=== PATIENT | female | born 1945 | race Caucasian/White ===

== ENCOUNTER 2017-01-16 05:31 | Emergency (ER) | payer OTHER ==
[~2017-01-16] VITALS: Ht 165.1 cm; Wt 66.9 kg
[~2017-01-16 05:31] MED LIST: ATOR-22 PO; CHOL1000 PO; CIPR-255 PO; HYDR-5688 PO; LISI-461 PO; MULT-506 PO; PANT40TA PO; ZNT/300 PO
[2017-01-16 05:36] VITALS: TEMP 36.7; Ht 165.1 cm; Wt 66.9 kg
[2017-01-16] MEDS ORDERED: OFLOXACIN 0.3% OP SOLN 5 ML BTL OTR STA (06:09)
--- NOTE | 2017-01-16 06:11 | EMERGENCY ROOM VISIT NOTE ---
History Report prepared by Alannaibe: Jesika Bee Under the Supervision of: Dr. Molly Mariano M.D. First contact with patient: 05:46 Chief Complaint: EAR PAIN Stated Complaint: EAR PAIN History of Present Illness The patient is a 71 year old female who presents to the Emergency Room with complaints of persistent right ear pain over the past 10 hours. She has been unable to sleep secondary to her pain. She also complains of some drainage from her right ear and nausea. The patient has a history of perforated ear drums, with episodes occurring 16 years ago and 3 months ago. During each perforation she also had cold-like symptoms. Denies fever or other complaints. the patient was initially seen at [facility] last night and was put on a Z-Pack. Source of History: patient Onset: 8 hours ago Position: ear (right) Timing: other (persistent) Associated Symptoms: + nausea Note: Other symptoms: right ear drainage Review of Systems See HPI for pertinent positives & negatives. A total of 10 systems reviewed and were otherwise negative. Past Medical & Surgical Medical Problems: (1) Incisional hernia (2) Large bowel perforation Family History Colon cancer BROTHER Colonic polyps Diabetes mellitus MOTHER Lymphoma MOTHER Prostate cancer FATHER Social History Smoking Status: Never Smoker Drug Use: none Marital Status: Housing Status: lives alone Occupation Status: retired Current/Historical Medications Scheduled Atorvastatin (Lipitor), 20 MG PO QAM Cefdinir (Omnicef), 300 MG PO Q12H Cholecalciferol (Vitamin D3), 1 TAB PO QAM Lisinopril (Zestril), 10 MG PO QAM Multivitamin (Multivitamin), 1 TAB PO QAM Pantoprazole (Protonix), 40 MG PO QAM Ranitidine HCl (Ranitidine HCl), 1 TAB PO HS Allergies Coded Allergies: BEE STING (Verified Allergy, Severe, SEVERE THROAT SWELLING, 01/16/17) Penicillins (Verified Allergy, Severe, Rash, Throat Swelling, 01/16/17) Sulfa Antibiotics (Verified Allergy, Severe, RASH,HIVES,SOB, 01/16/17) Esomeprazole (Verified Allergy, Intermediate, HIVES, 01/16/17) Aspirin (Verified Allergy, Mild, AVOID DUE TO HX ULCERS, 01/16/17) Doxepin (Verified Allergy, Unknown, SWELLING, 01/16/17) Metronidazole (Verified Allergy, Unknown, ITCHING ON HEAD ?DUE TO FLAGYL, 01/16/17) Mushroom (Verified Allergy, Unknown, SWELLING WITH INGESTION, 01/16/17) Pravastatin (Verified Allergy, Unknown, UNKNOWN, 01/16/17) Physical Exam Vital Signs Date Time Temp Pulse Resp B/P Pulse Ox O2 Delivery O2 Flow Rate FiO2 01/16/17 07:01 98 18 174/126 95 01/16/17 05:36 36.7 115 20 197/102 96 Room Air Physical Exam Vital signs reviewed. General: Well-appearing 71 year old female, in no significant distress. HEENT: No scleral icterus, PERRLA, purulence in the right ear canal, right TM not visualized, neck supple. Atraumatic. Cardiovascular: Regular rate and rhythm, no extra sounds. Pulmonary: Clear to auscultation bilaterally, normal work of breathing. Abdomen: Soft, nontender, nondistended, positive bowel sounds. Musculoskeletal: Atraumatic, no peripheral edema. Neurologic: Patient awake alert and oriented x 3, full strength in all 4 extremities. Cranial nerves 2 through 12 grossly intact. Skin: Warm, dry, no rash Medical Decision & Procedures Medications Administered Medications (Trade) Dose Ordered Sig/Latosha Route Start Time Stop Time Status Last Admin Dose Admin Ceftriaxone Sodium (Rocephin Im) 1,000 mg NOW ONCE IM 01/16/17 06:15 01/16/17 06:16 DC 01/16/17 06:27 1,000 MG Ofloxacin (Ocuflox 0.3% Oph Soln) 4 drops NOW STAT OTR 01/16/17 06:09 01/16/17 06:13 DC 01/16/17 06:28 4 DROPS Ondansetron HCl (Zofran Odt) 4 mg ONE STAT PO 01/16/17 06:19 01/16/17 06:20 DC 01/16/17 06:27 4 MG Epinephrine (Epipen) 0.3 mg NOW STAT IM 01/16/17 06:54 01/16/17 06:55 DC 01/16/17 06:54 0.3 MG ED Course 0556: The patient was evaluated in room B2. A complete history and physical examination was performed. 0609: Ordered Ofloxacin 4 drops OTR. 0615: Ordered Rocephin Inj 1000 mg IM. 0619: Ordered Zofran Odt 4 mg PO. 0650: Upon reevaluation, the patient was resting comfortably. I discussed findings with her. She verbalized agreement of the treatment plan. The patient was discharged home. 0654: Ordered Epipen 0.3 mg IM. Medical Decision Differential includes otitis media, otitis externa, ruptured TM, malignancy. This patient was evaluated and appeared to be in no significant distress. Physical examination reveals a right ear canal that is full of liquid purulent material. TM is not visualized however this is likely ruptured. Patient was placed on Omnicef after she tolerated an IM injection of Rocephin without difficulty. She was observed and developed no allergic symptoms. The patient was given instructions to begin Benadryl if allergic symptoms develop. She will use the EpiPen for severe allergic reaction and stop the medication immediately. Patient was given Floxin drops for the ear to be used twice daily. She'll follow-up with her primary care physician this week and will likely need ENT follow-up. The patient will return to the ER for worsening of symptoms or any medical concerns. Impression Primary Impression: Acute otitis media of right ear with perforated tympanic membrane Scribe Attestation The scribe's documentation has been prepared under my direction and personally reviewed by me in its entirety. I confirm that the note above accurately reflects all work, treatment, procedures, and medical decision making performed by me. Departure Information Dispostion Home / Self-Care Prescriptions Cefdinir (Omnicef) 300 Mg Cap 300 MG PO Q12H for 10 Days, #20 CAP Prov: Molly Mariano M.D. 01/16/17 Referrals Aury Gibson M.D. (PCP) Patient Instructions My [facility] Additional Instructions Diagnosis: Perforated right otitis media Omnicef 300 mg twice daily for 10 days. Ofloxacin 5 drops to the right ear 3 times daily for 7 days. If signs of allergic reaction develop such as hives, itching, lip swelling or throat tightening, take Benadryl 50 mg. Use your EpiPen if symptoms become severe. Follow-up with your primary care physician and ear nose and throat physician within the next several days. Return to the emergency department for worsening of symptoms or any medical concerns.
[2017-01-16] MEDS ORDERED: CEFTRIAXONE SOD 350MG/ML 1 GM VIAL IM ONE (06:15)
[2017-01-16] MEDS ORDERED: ONDANSETRON 4MG OD TAB PO STA (06:19)
[2017-01-16] MEDS ORDERED: CEFD1CAP14 PO (06:53)
[2017-01-16] MEDS ORDERED: EPINEPHRINE ADULT AUTO-INJECT 0.3 MG SYR IM STA (06:54)
[2017-01-16 07:01] VITALS: BP 174/126; PULSE 98; O2SAT 95
[2017-02-24] MEDS ORDERED: LISI20TA3 PO (09:59)
== END 2017-01-16 07:02 | disposition home or self-care (01) ==
LOC: C.EDB 05:32
DX: H66.91 Otitis media, unspecified, right ear (principal); H72.91 Unspecified perforation of tympanic membrane, right ear; Z79.899 Other long term (current) drug therapy; Z88.0 Allergy status to penicillin; Z88.2 Allergy status to sulfonamides; Z88.6 Allergy status to analgesic agent; Z88.8 Allergy status to other drugs, medicaments and biological substances; Z91.018 Allergy to other foods; Z91.030 Bee allergy status; Z83.3 Family history of diabetes mellitus; Z83.71 Family history of colonic polyps; Z80.42 Family history of malignant neoplasm of prostate

== ENCOUNTER → 2017-03-09 | Day surgery (SDC) | payer OTHER ==
[2017-02-24 09:51] VITALS: BMI 24.0
[~2017-03-09] VITALS: Ht 167.6 cm; Wt 68.2 kg
[~2017-03-09] MED LIST changes: -CIPR-255 PO; +CLIN300C2 PO; +ENDOSCOPIC MARKER 5 ML SYR ONE; -HYDR-5688 PO; +LIDOCAINE HCL 2% 2 ML VIAL (20MG/ML) ONE; -LISI-461 PO; +LISI20TA3 PO; +MIDAZOLAM HCL 1 MG/ML 2ML VIAL ONE; +ONDANSETRON INJ 2 MG/ML 2 ML VIAL ONE; +PROPOFOL IV EMULSION 10 MG/ML 20 ML VIAL IV ONE; +SODIUM CHLORIDE 0.9% 500ML 500 ML IV ONE
[2017-03-09 09:30] VITALS: Ht 167.6 cm; Wt 68.2 kg
--- NOTE | 2017-03-09 10:03 | Endo History and Physical ---
History & Physical Date of Service: Mar 09, 2017. Chief Complaint: HX OF POLYPS Referring Physician: DR NIEVES History of Present Illness 71 yo CF who presents for colonoscopy secondary to history of colon polyps. Past Medical History Arthritis, Reflux, High Cholesterol Past Surgical History Hx Cardiac Surgery: No Hx Internal Defibrillator: No Hx Pacemaker: No Hx Abdominal Surgery: Yes (CHAR BSO, CHAZ, ABDOMINAL HERNIA, COLON RESECTION ( POST PERFORATION BOWEL)) Hx of Implantable Prosthesis: No Hx Post-Op Nausea and Vomiting: Yes Hx Cancer Surgery: No Hx Thoracic Surgery: No Hx Orthopedic: Yes (LEFT ERICKSON, LUMBAR FUSION) Hx Urinary Tract Surgery: No Family History Colon CA Social History Smoking Status: Never Smoker Hx Substance Use: No Hx Alcohol Use: No Allergies Coded Allergies: BEE STING (Verified Allergy, Severe, SEVERE THROAT SWELLING, 02/24/17) Penicillins (Verified Allergy, Severe, Rash, Throat Swelling, 02/24/17) Sulfa Antibiotics (Verified Allergy, Severe, RASH,HIVES,SOB, 02/24/17) Esomeprazole (Verified Allergy, Intermediate, HIVES, 02/24/17) Aspirin (Verified Allergy, Mild, AVOID DUE TO HX ULCERS, 02/24/17) Doxepin (Verified Allergy, Unknown, SWELLING, 02/24/17) Metronidazole (Verified Allergy, Unknown, ITCHING ON HEAD ?DUE TO FLAGYL, 02/24/17) Mushroom (Verified Allergy, Unknown, SWELLING WITH INGESTION, 02/24/17) Pravastatin (Verified Allergy, Unknown, SWELLING, 02/24/17) Current Medications Reported Home Medications Medications Dose Route/Sig Max Daily Dose Days Date Category Prinivil (Lisinopril) 20 Mg Tab 20 Mg PO QAM 02/24/17 Reported Vitamin D3 (Cholecalciferol) 1,000 Unit Tab 1 Tab PO QAM 90 10/14/16 Reported Multivitamin (Multivitamins) Tab 1 Tab PO QAM 06/30/14 Reported Ranitidine HCl 300 Mg Tab 1 Tab PO HS 06/30/14 Reported Protonix (Pantoprazole Sodium) 40 Mg Tab 40 Mg PO QAM 06/30/14 Reported Lipitor (Atorvastatin Calcium) 20 Mg Tab 20 Mg PO QAM 06/30/14 Reported Vital Signs Weight (Kilograms): 68.18 Height (Feet): 5 Height (Inches): 6 Date Time Temp Pulse Resp B/P Pulse Ox O2 Delivery O2 Flow Rate FiO2 03/09/17 09:35 36.8 83 18 176/94 97 Room Air Physical Exam General Appearance: WD/WN, no apparent distress Respiratory/Chest: Auscultation: breath sounds normal Cardiovascular: Heart Auscultation: RRR Abdomen: Bowel Sounds: normal Inspection & Palpation: soft, non-distended, no tenderness, guarding & rebound Assessment and Plan Assessment: 71 yo CF who presents for colonoscopy secondary to history of colon polyps. Plan: Proceed with colonoscopy.
--- NOTE | 2017-03-09 10:37 | GI REPORT ---
Procedure Date: 03/09/2017 10:07 AM THIS REPORT HAS BEEN AMENDED Addendum Number: 1 Addendum Date: 03/09/2017 11:15:14 AM Biopsies were performed of the transverse colon polyp. Procedure: Colonoscopy Indications: High risk colon cancer surveillance: Personal history of colonic polyps Medicines: Monitored Anesthesia Care Complications: No immediate complications. Estimated Blood Loss: Estimated blood loss: none. Procedure: Pre-Anesthesia Assessment: - Prior to the procedure, a History and Physical was performed, and patient medications and allergies were reviewed. The patient's tolerance of previous anesthesia was also reviewed. The risks and benefits of the procedure and the sedation options and risks were discussed with the patient. All questions were answered, and informed consent was obtained. Prior Anticoagulants: The patient has taken no previous anticoagulant or antiplatelet agents. ASA Grade Assessment: II - A patient with mild systemic disease. After reviewing the risks and benefits, the patient was deemed in satisfactory condition to undergo the procedure. After I obtained informed consent, the scope was passed under direct vision. Throughout the procedure, the patient's blood pressure, pulse, and oxygen saturations were monitored continuously. The scope was introduced through the anus and advanced to the ileocolonic anastomosis. The colonoscopy was performed without difficulty. The patient tolerated the procedure well. The quality of the bowel preparation was good. The rectum was photographed. Findings: A 25 mm polyp was found in the transverse colon. The polyp was flat. Area was tattooed with an injection of 4 mL of Alondra ink 3 cm proximal to the polyp, site to avoid future difficulty with lifting of polyp and to provide landmark. Multiple small-mouthed diverticula were found in the sigmoid colon. Non-bleeding internal hemorrhoids were found during retroflexion. The hemorrhoids were small. Impression: - One 25 mm polyp in the transverse colon. Tattooed. - Diverticulosis in the sigmoid colon. - Non-bleeding internal hemorrhoids. - No specimens collected. Recommendation: - Resume previous diet. - Continue present medications. - Await pathology results. - Repeat colonoscopy to review the polypectomy site. - Return to endoscopist at appointment to be scheduled. Blayne Hebert DO 03/09/2017 10:37:27 AM This report has been signed electronically. Note Initiated On: 03/09/2017 10:07 AM I attest to the content of the Intraoperative Record and orders documented therein, exceptions below Blayne Hebert DO 03/09/2017 11:15:37 AM This report has been signed electronically.
--- NOTE | 2017-03-09 11:08 | Discharge Instructions ---
Endoscopy Patient Instructions Date / Procedure(s) Performed Mar 09, 2017. Colonoscopy Allergy Information Coded Allergies: BEE STING (Verified Allergy, Severe, SEVERE THROAT SWELLING, 02/24/17) Penicillins (Verified Allergy, Severe, Rash, Throat Swelling, 02/24/17) Sulfa Antibiotics (Verified Allergy, Severe, RASH,HIVES,SOB, 02/24/17) Esomeprazole (Verified Allergy, Intermediate, HIVES, 02/24/17) Aspirin (Verified Allergy, Mild, AVOID DUE TO HX ULCERS, 02/24/17) Doxepin (Verified Allergy, Unknown, SWELLING, 02/24/17) Metronidazole (Verified Allergy, Unknown, ITCHING ON HEAD ?DUE TO FLAGYL, 02/24/17) Mushroom (Verified Allergy, Unknown, SWELLING WITH INGESTION, 02/24/17) Pravastatin (Verified Allergy, Unknown, SWELLING, 02/24/17) Discharge Date / Findings Mar 09, 2017. Colon polyp s/p biopsies Diverticulosis Internal hemorrhoids Medication Instructions OK to resume all medications today as prescribed Reported Home Medications Medications Dose Route/Sig Max Daily Dose Days Date Category Prinivil (Lisinopril) 20 Mg Tab 20 Mg PO QAM 02/24/17 Reported Vitamin D3 (Cholecalciferol) 1,000 Unit Tab 1 Tab PO QAM 90 10/14/16 Reported Multivitamin (Multivitamins) Tab 1 Tab PO QAM 06/30/14 Reported Ranitidine HCl 300 Mg Tab 1 Tab PO HS 06/30/14 Reported Protonix (Pantoprazole Sodium) 40 Mg Tab 40 Mg PO QAM 06/30/14 Reported Lipitor (Atorvastatin Calcium) 20 Mg Tab 20 Mg PO QAM 06/30/14 Reported Provider Instructions Activity Restrictions - No exercising or heavy lifting for 24 hours. - Do not drink alcohol the day of the procedure. - Do not drive a car or operate machinery until the day after the procedure. - Do not make any important decisions or sign important papers in 24 hours after the procedure. Following Day: - Return to full activity which may include returning to work/school. Diet Start your diet with liquids and light foods (jello, soup, juice, toast). Then eat your usual diet if not nauseated. Treatment For Common After Affects For mild abdominal pain, bloating, or excessive gas: - Rest - Eat lightly - Lie on right side Follow-Up Information Follow-up with DR NIEVES as scheduled Anesthesia Information What You Should Know You have had a procedure that required some medicine to reduce anxiety and discomfort. This treatment is called moderate sedation. After receiving the treatment, you may be sleepy, but you will be able to breathe on your own. The effects of the treatment may last for several hours. Follow these instructions along with Activity/Diet recommendations noted above: * Do NOT do anything where dizziness or clumsiness would be dangerous. * Rest quietly at home today, then you can be up and about tomorrow. * Have a responsible person stay with you the rest of today. * You may have had an I.V. today. If so, you may take the dressing off later today. Recommendations Call your doctor if: * Trouble breathing * Continuous vomiting for more than 24 hours * Temperature above 101 degrees * Severe abdominal pain or bloating * Pain not relieved by pain medicine ordered * There is increased drainage or redness from any incision * A large amount of rectal bleeding greater than 2-3 tablespoons. (If you had a polyp/s removed or have hemorrhoids, a small amount of blood - from the rectum is to be expected.) * You have any unanswered questions or concerns. IN THE EVENT OF A SERIOUS EMERGENCY, GO TO THE NEAREST EMERGENCY ROOM Your discharge instructions were prepared by provider Blayne Hebert. Patient Instructions Signature Page Libra Clarke Patient (or Guardian) Signature/Date: I have read and understand the instructions given to me by my caregivers. Caregiver/RN/Doctor Signature/Date: The above-named patient and/or guardian has received patient instructions on this date. + Original Patient Signature Page (only) stays with chart. Please make copy for patient.
[2017-03-09 11:10] VITALS: BP 147/82; PULSE 80; O2SAT 98
--- NOTE | 2017-03-09 13:32 | Anesthesiology Progress Note ---
Anesthesia Post Op Note Date & Time Mar 09, 2017 at 13:31 Vital Signs Pain Intensity: 0 Vital Signs Past 12 Hours Date Time Temp Pulse Resp B/P Pulse Ox O2 Delivery O2 Flow Rate FiO2 03/09/17 11:10 80 20 147/82 98 Room Air 03/09/17 10:52 81 20 121/67 98 Room Air 03/09/17 10:37 82 20 129/75 98 Room Air 03/09/17 09:35 36.8 83 18 176/94 97 Room Air Notes Mental Status: alert / awake / arousable, participated in evaluation Pt Amnestic to Procedure: Yes Nausea / Vomiting: adequately controlled Pain: adequately controlled Airway Patency, RR, SpO2: stable & adequate BP & HR: stable & adequate Hydration State: stable & adequate Anesthetic Complications: no major complications apparent
== END | disposition home or self-care (01) ==
LOC: C.GI 08:53
PROVIDERS: ATTEND Internal Medicine
DX: Z12.11 Encounter for screening for malignant neoplasm of colon (principal); Z86.010 Personal history of colon polyps; D12.3 Benign neoplasm of transverse colon; K57.30 Diverticulosis of large intestine without perforation or abscess without bleeding; I10 Essential (primary) hypertension; M19.90 Unspecified osteoarthritis, unspecified site; Z88.0 Allergy status to penicillin; Z90.89 Acquired absence of other organs; Z90.49 Acquired absence of other specified parts of digestive tract; Z96.642 Presence of left artificial hip joint; Z68.24 Body mass index [BMI] 24.0-24.9, adult; Z88.2 Allergy status to sulfonamides; Z91.018 Allergy to other foods; Z80.0 Family history of malignant neoplasm of digestive organs

== ENCOUNTER → 2017-08-25 | Outpatient (CLI) | payer OTHER ==
[~2017-08-25] MED LIST changes: -CLIN300C2 PO; -ENDOSCOPIC MARKER 5 ML SYR ONE; -LIDOCAINE HCL 2% 2 ML VIAL (20MG/ML) ONE; -MIDAZOLAM HCL 1 MG/ML 2ML VIAL ONE; -ONDANSETRON INJ 2 MG/ML 2 ML VIAL ONE; -PROPOFOL IV EMULSION 10 MG/ML 20 ML VIAL IV ONE; -SODIUM CHLORIDE 0.9% 500ML 500 ML IV ONE
[2017-08-25 12:48] LABS: ALT/SGPT 24 U/L (12-78); BLOOD UREA NITROGEN 16 mg/dl (7-18); BUN/CREATININE RATIO 18.9 (10-20); CALCIUM 9.5 mg/dl (8.5-10.1); CARBON DIOXIDE 27 mmol/L (21-32); CHLORIDE 104 mmol/L (98-107); CHOLESTEROL 194 mg/dl (0-200); CREATININE 0.83 mg/dl (0.60-1.20); GLUCOSE 97 mg/dl (70-99); SODIUM 139 mmol/L (136-145)
[2017-08-25 12:51] LABS: ALB/GLOB RATIO 1.1 (0.9-2); ALKALINE PHOSPHATASE 107 U/L (45-117); AST/SGOT 19 U/L (15-37); CHOLESTEROL/HDL RATIO 3.2; HDL CHOLESTEROL 60 mg/dl; LDL CHOLESTEROL CALCULATED 78 mg/dl; TRIGLYCERIDES 279 mg/dl (0-150); VERY LOW DENSITY LIPOPROT CALC 56 mg/dl
[2017-08-25 12:54] LABS: ESTIMATED AVERAGE GLUCOSE 134 mg/dl; HA1C FLAG Normal (Normal)
== END | disposition home or self-care (01) ==
LOC: C.LABBFT 09:11
PROVIDERS: ATTEND Internal Medicine
DX: Z00.00 Encounter for general adult medical examination without abnormal findings (principal); I10 Essential (primary) hypertension; R73.01 Impaired fasting glucose

== ENCOUNTER 2017-09-23 20:24 | Emergency (ER) | payer OTHER ==
[~2017-09-23] VITALS: Ht 165.1 cm; Wt 68.0 kg
[2017-09-23 20:27] VITALS: TEMP 36.8; Ht 165.1 cm; Wt 68.0 kg
[2017-09-23] MEDS ORDERED: LIDOCAINE/EPINEPHRINE 1% 20 ML VIAL INFIL ONE (21:00)
--- NOTE | 2017-09-23 21:12 | EMERGENCY ROOM VISIT NOTE ---
ED Visit Note First contact with patient: 20:32 Staff note: I have reviewed the Patients chart and have discussed this case with my PA. I generally agree with the ED note and findings.
[2017-09-23] MEDS ORDERED: CLIN300C2 PO (21:59)
[2017-09-23] MEDS ORDERED: CLINDAMYCIN HCL 150 MG CAP PO ONE (22:00)
[2017-09-23 22:02] VITALS: BP 205/106; PULSE 99; O2SAT 97
--- NOTE | 2017-09-23 22:02 | EMERGENCY ROOM VISIT NOTE ---
History First contact with patient: 20:32 Chief Complaint: WOUND INFECTION Stated Complaint: ABSCESS BY GROIN, POSSIBLE SPIDER BITE Nursing Triage Summary: Pt reports "spider bite" to right inner thigh/groin area and to right posterior arm. Groin lesion started 3 days ago and is [id number] with white head. draining yellow fluid. Arm lesion noticed yesterday. Small red area without drainage. History of Present Illness The patient is a 71 year old female who presents to the Emergency Room with complaints of a possible spider bite. The patient states that she has an area of swelling in her right groin as well as a small area of swelling on the back of her right arm. She states she first noticed the area on the groin 3 days ago. She has been using warm Epsom salt soaks without relief. She states the area is not painful. She believes she may have been bitten by a spider, but denies any history of an obvious spider bite. She denies any fevers/chills. She has full range of motion of the legs. The patient is not diabetic. Review of Systems A complete 10 point review of systems was reviewed with the patient with pertinent positives and negatives as per history of present illness. All else were negative. Past Medical/Surgical History Medical Problems: (1) Incisional hernia (2) Large bowel perforation Family History Colon cancer BROTHER Colonic polyps Diabetes mellitus MOTHER Lymphoma MOTHER Prostate cancer FATHER Social History Smoking Status: Never Smoker Drug Use: none Marital Status: Housing Status: lives alone Occupation Status: retired Current/Historical Medications Scheduled Atorvastatin (Lipitor), 20 MG PO QAM Clindamycin Hcl (Cleocin), 300 MG PO TID Lisinopril (Prinivil), 20 MG PO QAM Multivitamin (Multivitamin), 1 TAB PO QAM Pantoprazole (Protonix), 40 MG PO QAM Ranitidine HCl (Ranitidine HCl), 1 TAB PO HS Physical Exam Vital Signs Date Time Temp Pulse Resp B/P (MAP) Pulse Ox O2 Delivery O2 Flow Rate FiO2 09/23/17 22:02 99 15 205/106 97 Room Air 09/23/17 20:27 36.8 117 18 198/110 95 Room Air Physical Exam VITALS: Vitals are noted on the nurse's note and reviewed by myself. Vital signs stable. GENERAL: This is a 71-year-old female, in no acute distress, nondiaphoretic, well-developed well-nourished. SKIN: There is an area of fluctuance which measures 2 cm x 2 cm at the proximal right inner thigh. There is a small amount of purulent drainage. There is a very small area of erythema and swelling to the posterior right upper arm with no fluctuance or drainage. HEART: Regular rate and rhythm without murmurs gallops or rubs. LUNGS: Clear to auscultation bilaterally without wheezes, rales or rhonchi. MUSCULOSKELETAL: Full range of motion throughout. NEURO: Patient was alert and oriented to person place and time. Medical Decision & Procedures Medications Administered Medications (Trade) Dose Ordered Sig/Latosha Route Start Time Stop Time Status Last Admin Dose Admin Clindamycin HCl (Cleocin Cap) 300 mg ONE ONCE PO 09/23/17 22:00 09/23/17 22:01 DC 09/23/17 22:01 300 MG Procedure Verbal consent was obtained to perform the procedure. After saline and Betadine cleansing and 3 mL of 1% buffered lidocaine anesthesia, the abscess was incised with a number 11 scalpel blade. No significant purulent material was expressed. A swab was obtained for culture. The area was cleaned with sterile saline and dressed with bacitracin and a bulky bandage. The patient tolerated the procedure well. Medical Decision Differential diagnosis includes insect bite, cellulitis, abscess, among others. The patient was evaluated as above. I&D was attempted, but no significant pus was expelled. This does seem to represent an abscess/phlegmon and the patient will be placed on clindamycin pending the culture results. She was instructed to follow-up with her primary care provider within the next 2-3 days for recheck and return here if symptoms worsen in the meantime. She verbalized understanding of my assessment and treatment plan and was discharged home in good condition. The patient was independently evaluated by Dr. Rodriguez, ED attending physician, who agreed with my assessment and treatment plan. Medication Reconcilliation Current Medication List: was personally reviewed by me Blood Pressure Screening Patient's blood pressure: Elevated blood pressure Blood pressure disposition: Referred to PCP (patient reports she has white coat syndrome and blood pressure is typically very elevated when seen at a hospital or doctors office.) Impression Primary Impression: Abscess of right thigh Departure Information Dispostion Home / Self-Care Condition GOOD Prescriptions Clindamycin Hcl (CLEOCIN) 300 Mg Cap 300 MG PO TID for 7 Days, #21 CAP Prov: Homa Sargent .ELEUTERIO 09/23/17 Referrals Aury Gibson M.D. (PCP) Patient Instructions My [facility] Additional Instructions You were seen in the Emergency Department for an infection of your leg. You were prescribed clindamycin to be taken 3 times daily as prescribed. This is an antibiotic. All antibiotics have the potential to cause diarrhea. Stop this medication and contact a medical provider if you were to develop any significant adverse side effects including: wheezing, shortness of breath, passing out, vomiting, or a diffuse rash. Always take antibiotics as directed and COMPLETE the ENTIRE course regardless of the improvement of your symptoms. You should take a probiotic while taking these antibiotics. Proper wound care is essential for adequate wound healing and infection prevention. You can use an antibiotic ointment with a dressing over the wound for the next 3-4 days. After this time you may leave the wound dry and open to the air. Look for signs of infection of the wound including: increased pain, swelling, foul discharge, streaking, or increased temperature. If any of these are noticed you should return to the Emergency Department for further assessment and treatment. As with any laceration you may have received nerve damage to the surrounding tissues. This damage may or may not be permanent. For pain control, you can use the following [id number] medicines (if >12 yo): - Regular strength (325mg/tab) Tylenol (acetaminophen) 2 tabs every 4-6 hours as needed. Do not exceed 12 tablets in a 24 hour period. Avoid taking more than 4 grams (4000 mg) of Tylenol per day. This includes any other sources of acetaminophen you may take on a regular basis. - Regular strength (200 mg/tab) Advil (ibuprofen) 1-2 tabs every 4-6 hours as needed. Do not exceed a dose of 3200 mg per day. You should call your primary care provider tomorrow to schedule a follow-up appointment Thursday afternoon for a recheck. Return to the emergency department if your symptoms worsen despite treatment course outlined above.
--- NOTE | 2017-09-25 16:06 | Pharmacy Progress Note ---
ED Pharmacist Culture FollowUp Date of Service: Sep 25, 2017. Patient was sent home with a prescription for clindamycin, which should cover the MSSA growing from the patient's wound culture.
== END 2017-09-23 22:05 | disposition home or self-care (01) ==
LOC: C.EDB 20:25 → C.EDD 22:05
DX: L02.415 Cutaneous abscess of right lower limb (principal); L98.9 Disorder of the skin and subcutaneous tissue, unspecified; Z80.0 Family history of malignant neoplasm of digestive organs; Z80.7 Family history of other malignant neoplasms of lymphoid, hematopoietic and related tissues; Z79.899 Other long term (current) drug therapy

== ENCOUNTER → 2017-11-26 | Outpatient (CLI) | payer OTHER ==
[~2017-11-26] MED LIST changes: -CHOL1000 PO
--- NOTE | 2017-11-26 17:00 | DIAGNOSTIC IMAGING REPORT ---
CHEST 2 VIEWS ROUTINE CLINICAL HISTORY: 72 years-old Female presenting with CHILLS,COUGH,FATIGUE. TECHNIQUE: PA and lateral views of the chest were obtained. COMPARISON: 03/09/2016. FINDINGS: Atherosclerosis of the aortic arch. Cardiac silhouette normal in size. Lungs and pleural spaces clear. Osseous structures normal. Upper abdomen normal. IMPRESSION: 1. No acute cardiopulmonary disease. Electronically signed by: Gatito Davenport M.D. 11/26/2017 4:58 PM Dictated Date/Time: 11/26/2017 4:58 PM
== END | disposition home or self-care (01) ==
LOC: C.RAD1850 16:41
PROVIDERS: ATTEND Internal Medicine
DX: R68.83 Chills (without fever) (principal); R05 Cough; R53.83 Other fatigue

== ENCOUNTER → 2018-02-09 | Day surgery (SDC) | payer OTHER ==
[2018-01-22 13:04] VITALS: Ht 168.9 cm; Wt 68.2 kg
[~2018-02-09] VITALS: Ht 168.9 cm; Wt 68.2 kg
[~2018-02-09] MED LIST changes: +500ML BSS 0.3ML EPI 1:1000PF IRRIG ONE; +ACETAMINOPHEN 325 MG TAB PO PRN; +AMVISC PLUS 0.8ML SYRINGE INT OCU ONE; +ASCA500 PO; +ATROPINE SULFATE 0.1 MG/ML 5ML SYR IV PRN; +BSS FLUSH ONE; +CHOL1000 PO; +EpHEDrine SULFATE INJ 50 MG/ML AMP IV PRN; +EpINEphrine INJ 1MG/ML AMP 1 MG/ML AMP ONE; +LABETALOL HCL IV 5 MG/ML 20ML IV ONE; +LACTATED RINGER'S 1000ML 500 ML IV SCH; +LIDOCAINE 3.5% OPH GEL PER APPLICATION CHARGE ONE; +LIDOCAINE HCL 1% MPF 2 ML VIAL ONE; +MIDAZOLAM HCL 1 MG/ML 2ML VIAL ONE; +POVIDONE-IODINE OP SOLN 30 ML BTL ONE; +PROPARACAINE 0.5% OP SOLN PER DROP CHARGE OPR SCH; +SODIUM CHLORIDE 0.9% 500ML IV SCH; +TOBRAMYCIN/DEXAMETHASONE OPH OINT PER APPLN CHARGE ONE
[2018-02-09] MEDS: PHENYLEPHRINE HCL 2.5% OP SOLN PER DROP CHARGE OPR SCH ×2 (10:48→10:53)
[2018-02-09] MEDS: TROPICAMIDE 1% OP SOLN PER DROP CHARGE OPR SCH ×2 (10:49→10:54)
[2018-02-09] MEDS: CYCLOPENTOLATE HCL 1% OP SOLN PER DROP CHARGE OPR SCH ×2 (10:50→10:55)
[2018-02-09] MEDS: KETOROLAC 0.5% OP SOLN PER DROP CHARGE OPR SCH ×2 (10:51→10:56)
[2018-02-09] MEDS: GATIFLOXACIN OP SOLN PER DROP CHARGE OPR SCH ×2 (10:52→11:02)
--- NOTE | 2018-02-09 11:13 | History & Physical Bridge - [place] ---
H&P Re-Evaluation Bridge Note: I have examined the patient, reviewed the History & Physical and in the interval since the performance of the History & Physical I have noted the following changes of clinical significance: No changes noted
--- NOTE | 2018-02-09 11:44 | [facility] Operative Report ---
Operative Report Date of Service Feb 09, 2018. Operative Report 1. PREOPERATIVE DIAGNOSIS: Cataract of the right eye. 2. POSTOPERATIVE DIAGNOSIS: Same. 3. PROCEDURE: Phacoemulsification with intraocular lens implantation of the right eye. SURGEON: Dr. Mariano Bell. ANESTHESIA: Topical Lidocaine gel, 1% Non- Preserved intracameral Lidocaine, and monitored intravenous sedation. INDICATIONS FOR THE PROCEDURE: The patient is a 72 - year-old female with a history of cataract of the right eye causing significant visual impairment. The details of the proposed procedure were explained to the patient who asked appropriate questions and following discussion of all risks, benefits and alternatives agreed to have the procedure done. 4. OPERATION AND FINDINGS: DESCRIPTION OF PROCEDURE: After informed consent was obtained, the patient was brought to the Operating Room at the [facility]. The patient was placed in a supine position and then the right eye was prepped and draped in the usual sterile fashion for intraocular surgery. A drop of topical Lidocaine gel was placed in the operative eye. A wire lid speculum was then placed in the fornices. A corneal paracentesis was then created temporally. The Non-Preserved Lidocaine was then instilled into the anterior chamber. The anterior chamber was then pressurized with viscoelastic. A 2.0 mm clear corneal incision was then created temporally. A cystotome was inserted into the anterior chamber and used to create a tear in the anterior lens capsule. This capsular tear was then used to create a small flap and the flap was dragged in a counterclockwise direction in order to create a continuous curvilinear capsulorrhexis. Hydrodissection was accomplished with balanced salt solution. Phacoemulsification of the lens nucleus was then performed in a standard [id number] technique. The phaco time was 19 seconds with an average power of 13 %. The remaining cortical material was removed using irrigation aspiration. The capsular bag was then filled with viscoelastic. A Bausch [employer] Lomb MI60L +20.0 diopters lens was then loaded into the injector and injected into the capsular bag. The remaining viscoelastic was removed with the irrigation aspiration handpiece. The wound was hydrated and then checked and found to be watertight. The intraocular pressure was checked and found to be adequate. The wire lid speculum was removed and the patient's face was cleaned and dried. TobraDex ointment was placed in the inferior fornix. The patient was discharged to the Recovery Room having tolerated the procedure well. There were no complications. The patient will be seen tomorrow in the office for follow-up. I attest to the content of the Intraoperative Record and any orders documented therein. Any exceptions are noted below.
--- NOTE | 2018-02-09 11:45 | Discharge Instructions-SurgCtr ---
Discharge Instructions Date of Service Feb 09, 2018. Visit Reason for Visit: Cataract Right Eye Discharge Discharge Diagnosis / Problem: cataract Discharge Goals Goal(s): Improve function Activity Recommendations Activity Limitations: per Instructions/Follow-up section Anesthesia . Post Anesthesia Instructions: If you have had General Anesthesia or IV Sedation: * Do not drive today. * Resume driving when surgeon permits. * Do not make important decisions or sign legal documents today. * Call surgeon for: 1. Temperature elevations greater than 101 degrees F. 2. Uncontrollable pain. 3. Excessive bleeding. 4. Persistent nausea and vomiting. 5. Medication intolerance (nausea, vomiting or rash). * For nausea and vomiting use only clear liquids such as: tea, soda, bouillon until nausea subsides, then gradually increase diet as tolerated. * If you have any concerns or questions, call your surgeon's office. If physician is unavailable and it is an emergency, call 911 or go to the nearest emergency room. . Diet Recommendations Home Diet: resume previous diet Procedures Procedures Performed: Right Cataract Phacoemulsification With Intraocular Lens Implant Pending Studies Studies pending at discharge: no Medical Emergencies . Who to Call and When: Medical Emergencies: If at any time you feel your situation is an emergency, please call 911 immediately. . Non-Emergent Contact Non-Emergency issues call your: S[employer] Architect . . "Provider Documentation" section prepared by Mariano Bell. .
[2018-02-09 11:48] VITALS: TEMP 36.2
--- NOTE | 2018-02-09 12:05 | Anesthesia Progress Nt - [facility] ---
Anesthesia Post Op Note Date & Time Feb 09, 2018 at 12:05 Vital Signs Pain Intensity: 0 Vital Signs Past 12 Hours Date Time Temp Pulse Resp B/P (MAP) Pulse Ox O2 Delivery O2 Flow Rate FiO2 02/09/18 11:48 36.2 88 14 150/87 (108) 98 Room Air 02/09/18 10:40 36.8 84 22 177/105 (129) 95 Room Air 171/99 (123) Notes Mental Status: alert / awake / arousable, participated in evaluation Pt Amnestic to Procedure: Yes Nausea / Vomiting: adequately controlled Pain: adequately controlled Airway Patency, RR, SpO2: stable & adequate BP & HR: stable & adequate Hydration State: stable & adequate Anesthetic Complications: no major complications apparent
[2018-02-09 12:10] VITALS: BP 132/83; PULSE 79; O2SAT 97
== END | disposition home or self-care (01) ==
LOC: X.SURG 10:17
PROVIDERS: ATTEND Ophthalmology
DX: H26.9 Unspecified cataract (principal); I10 Essential (primary) hypertension; Z79.899 Other long term (current) drug therapy; Z90.710 Acquired absence of both cervix and uterus; Z90.49 Acquired absence of other specified parts of digestive tract; Z87.19 Personal history of other diseases of the digestive system; Z96.642 Presence of left artificial hip joint; Z88.0 Allergy status to penicillin; Z88.2 Allergy status to sulfonamides; Z88.6 Allergy status to analgesic agent; Z98.890 Other specified postprocedural states; Z80.7 Family history of other malignant neoplasms of lymphoid, hematopoietic and related tissues; Z80.42 Family history of malignant neoplasm of prostate; Z80.0 Family history of malignant neoplasm of digestive organs; Z83.71 Family history of colonic polyps

== ENCOUNTER → 2018-03-02 | Day surgery (SDC) | payer OTHER ==
[2018-02-16 14:54] VITALS: Ht 168.9 cm; Wt 68.2 kg
[~2018-03-02] VITALS: Ht 168.9 cm; Wt 68.2 kg
[~2018-03-02] MED LIST changes: +FENTANYL CITRATE INJ 50 MCG/1 ML 2 ML VIAL IV PRN; +FLUMAZENIL 0.1 MG/1 ML 10 ML VIAL IV PRN; +HYDROmorphone INJ 2 MG/ML SYR/VIAL IV PRN; -LABETALOL HCL IV 5 MG/ML 20ML IV ONE; +LABETALOL HCL IV 5 MG/ML 20ML IV PRN; +MEPERIDINE HCL 25 MG/ML CARP IV PRN; +NALOXONE HCL 0.4 MG/1 ML VIAL/CARP IV PRN; +OCUCOAT 1 ML SOLN IO ONE; +ONDANSETRON INJ 2 MG/ML 2 ML VIAL IV PRN; +PHENYLEPHRINE 100MCG/ML 5ML SYR IV PRN; +PROPARACAINE 0.5% OP SOLN PER DROP CHARGE OPL SCH; -PROPARACAINE 0.5% OP SOLN PER DROP CHARGE OPR SCH; -SODIUM CHLORIDE 0.9% 500ML IV SCH
--- NOTE | 2018-03-02 11:41 | History & Physical Bridge - [place] ---
H&P Re-Evaluation Bridge Note: I have examined the patient, reviewed the History & Physical and in the interval since the performance of the History & Physical I have noted the following changes of clinical significance: Diagnosis: Left Cataract Procedure: Left Cataract Removal with Lens Implant No changes noted
[2018-03-02] MEDS: PHENYLEPHRINE HCL 2.5% OP SOLN PER DROP CHARGE OPL SCH ×2 (11:45→11:50)
[2018-03-02] MEDS: TROPICAMIDE 1% OP SOLN PER DROP CHARGE OPL SCH ×2 (11:46→11:51)
[2018-03-02] MEDS: CYCLOPENTOLATE HCL 1% OP SOLN PER DROP CHARGE OPL SCH ×2 (11:47→11:52)
[2018-03-02] MEDS: KETOROLAC 0.5% OP SOLN PER DROP CHARGE OPL SCH ×2 (11:48→11:53)
[2018-03-02] MEDS: GATIFLOXACIN OP SOLN PER DROP CHARGE OPL SCH ×2 (11:49→11:59)
--- NOTE | 2018-03-02 12:53 | Discharge Instructions-SurgCtr ---
Discharge Instructions Date of Service Mar 02, 2018. Visit Reason for Visit: Cataract Left Eye Discharge Discharge Diagnosis / Problem: cataract Discharge Goals Goal(s): Improve function Activity Recommendations Activity Limitations: per Instructions/Follow-up section Anesthesia . Post Anesthesia Instructions: If you have had General Anesthesia or IV Sedation: * Do not drive today. * Resume driving when surgeon permits. * Do not make important decisions or sign legal documents today. * Call surgeon for: 1. Temperature elevations greater than 101 degrees F. 2. Uncontrollable pain. 3. Excessive bleeding. 4. Persistent nausea and vomiting. 5. Medication intolerance (nausea, vomiting or rash). * For nausea and vomiting use only clear liquids such as: tea, soda, bouillon until nausea subsides, then gradually increase diet as tolerated. * If you have any concerns or questions, call your surgeon's office. If physician is unavailable and it is an emergency, call 911 or go to the nearest emergency room. . Diet Recommendations Home Diet: resume previous diet Procedures Procedures Performed: Left Cataract Phacoemulsification With Intraocular Lens Implant Pending Studies Studies pending at discharge: no Medical Emergencies . Who to Call and When: Medical Emergencies: If at any time you feel your situation is an emergency, please call 911 immediately. . Non-Emergent Contact Non-Emergency issues call your: Electric Lift Truck Driver . . "Provider Documentation" section prepared by Mariano Bell. .
--- NOTE | 2018-03-02 12:53 | [facility] Operative Report ---
Operative Report Date of Service Mar 02, 2018. Operative Report 1. PREOPERATIVE DIAGNOSIS: Cataract of the left eye. 2. POSTOPERATIVE DIAGNOSIS: Same. 3. PROCEDURE: Phacoemulsification with intraocular lens implantation of the left eye. SURGEON: Dr. Mariano Bell. ANESTHESIA: Topical Lidocaine gel, 1% Non- Preserved intracameral Lidocaine, and monitored intravenous sedation. INDICATIONS FOR THE PROCEDURE: The patient is a 72 - year-old female with a history of cataract of the left eye causing significant visual impairment. The details of the proposed procedure were explained to the patient who asked appropriate questions and following discussion of all risks, benefits and alternatives agreed to have the procedure done. 4. OPERATION AND FINDINGS: DESCRIPTION OF PROCEDURE: After informed consent was obtained, the patient was brought to the Operating Room at the [facility]. The patient was placed in a supine position and then the left eye was prepped and draped in the usual sterile fashion for intraocular surgery. A drop of topical Lidocaine gel was placed in the operative eye. A wire lid speculum was then placed in the fornices. A corneal paracentesis was then created temporally. The Non-Preserved Lidocaine was then instilled into the anterior chamber. The anterior chamber was then pressurized with viscoelastic. A 2.0 mm clear corneal incision was then created temporally. A cystotome was inserted into the anterior chamber and used to create a tear in the anterior lens capsule. This capsular tear was then used to create a small flap and the flap was dragged in a counterclockwise direction in order to create a continuous curvilinear capsulorrhexis. Hydrodissection was accomplished with balanced salt solution. Phacoemulsification of the lens nucleus was then performed in a standard [id number] technique. The phaco time was 21 seconds with an average power of 11 %. The remaining cortical material was removed using irrigation aspiration. The capsular bag was then filled with viscoelastic. A Bausch & Lomb MI60L +20.5 diopters lens was then loaded into the injector and injected into the capsular bag. The remaining viscoelastic was removed with the irrigation aspiration handpiece. The wound was hydrated and then checked and found to be watertight. The intraocular pressure was checked and found to be adequate. The wire lid speculum was removed and the patient's face was cleaned and dried. TobraDex ointment was placed in the inferior fornix. The patient was discharged to the Recovery Room having tolerated the procedure well. There were no complications. The patient will be seen tomorrow in the office for follow-up. I attest to the content of the Intraoperative Record and any orders documented therein. Any exceptions are noted below.
[2018-03-02 12:55] VITALS: TEMP 36.6
--- NOTE | 2018-03-02 13:08 | Anesthesia Progress Nt - [facility] ---
Anesthesia Post Op Note Date & Time Mar 02, 2018 at 13:08 Vital Signs Pain Intensity: 0 Vital Signs Past 12 Hours Date Time Temp Pulse Resp B/P (MAP) Pulse Ox O2 Delivery O2 Flow Rate FiO2 03/02/18 12:55 36.6 74 16 131/81 (98) 99 Room Air 03/02/18 11:37 36.6 80 16 174/99 (124) 96 Room Air Notes Mental Status: alert / awake / arousable, participated in evaluation Pt Amnestic to Procedure: Yes Nausea / Vomiting: adequately controlled Pain: adequately controlled Airway Patency, RR, SpO2: stable & adequate BP & HR: stable & adequate Hydration State: stable & adequate Anesthetic Complications: no major complications apparent
[2018-03-02 13:17] VITALS: BP 122/80; PULSE 73; O2SAT 100
== END | disposition home or self-care (01) ==
LOC: X.SURG 10:40
PROVIDERS: ATTEND Ophthalmology
DX: H26.9 Unspecified cataract (principal); I10 Essential (primary) hypertension; E78.5 Hyperlipidemia, unspecified; Z88.0 Allergy status to penicillin; Z88.2 Allergy status to sulfonamides; Z88.1 Allergy status to other antibiotic agents; Z88.6 Allergy status to analgesic agent; Z90.49 Acquired absence of other specified parts of digestive tract; Z98.890 Other specified postprocedural states; Z91.030 Bee allergy status; Z96.642 Presence of left artificial hip joint; Z90.89 Acquired absence of other organs; Z90.710 Acquired absence of both cervix and uterus; Z79.82 Long term (current) use of aspirin; Z80.7 Family history of other malignant neoplasms of lymphoid, hematopoietic and related tissues; Z80.42 Family history of malignant neoplasm of prostate; Z80.0 Family history of malignant neoplasm of digestive organs

== ENCOUNTER → 2018-04-15 | Outpatient (CLI) | payer OTHER ==
[~2018-04-15] MED LIST changes: -500ML BSS 0.3ML EPI 1:1000PF IRRIG ONE; -ACETAMINOPHEN 325 MG TAB PO PRN; -AMVISC PLUS 0.8ML SYRINGE INT OCU ONE; -ATROPINE SULFATE 0.1 MG/ML 5ML SYR IV PRN; -BSS FLUSH ONE; -EpHEDrine SULFATE INJ 50 MG/ML AMP IV PRN; -EpINEphrine INJ 1MG/ML AMP 1 MG/ML AMP ONE; -FENTANYL CITRATE INJ 50 MCG/1 ML 2 ML VIAL IV PRN; -FLUMAZENIL 0.1 MG/1 ML 10 ML VIAL IV PRN; -HYDROmorphone INJ 2 MG/ML SYR/VIAL IV PRN; -LABETALOL HCL IV 5 MG/ML 20ML IV PRN; -LACTATED RINGER'S 1000ML 500 ML IV SCH; -LIDOCAINE 3.5% OPH GEL PER APPLICATION CHARGE ONE; -LIDOCAINE HCL 1% MPF 2 ML VIAL ONE; -MEPERIDINE HCL 25 MG/ML CARP IV PRN; -MIDAZOLAM HCL 1 MG/ML 2ML VIAL ONE; -NALOXONE HCL 0.4 MG/1 ML VIAL/CARP IV PRN; -OCUCOAT 1 ML SOLN IO ONE; -ONDANSETRON INJ 2 MG/ML 2 ML VIAL IV PRN; -PHENYLEPHRINE 100MCG/ML 5ML SYR IV PRN; -POVIDONE-IODINE OP SOLN 30 ML BTL ONE; -PROPARACAINE 0.5% OP SOLN PER DROP CHARGE OPL SCH; -TOBRAMYCIN/DEXAMETHASONE OPH OINT PER APPLN CHARGE ONE
--- NOTE | 2018-04-15 13:40 | DIAGNOSTIC IMAGING REPORT ---
BILATERAL CAROTID DOPPLER STUDY HISTORY: R09.89 Carotid bruit [id number] COMPARISON: None. TECHNIQUE: Real-time, grayscale, and color Doppler sonography of the carotid arteries was performed. Imaging reviewed in the transverse and longitudinal planes. All measurements were calculated based on NASCET criteria. FINDINGS: Antegrade flow is seen in the bilateral vertebral arteries. The brachial pressures are hemodynamically similar. Mild calcified plaque within the bilateral carotid bifurcations and is elevated measuring up to 171/93. The peak systolic velocity within the right ICA is 68 cm/s. The right systolic ratio is 0.7. The peak systolic velocity within the left ICA is 94 cm/s. The left systolic ratio is 1.0. IMPRESSION: No hemodynamically significant stenosis seen within the carotid arteries. Hypertension measuring up to 171/93. Electronically signed by: Adal Slaughter M.D. 04/15/2018 1:39 PM Dictated Date/Time: 04/15/2018 1:38 PM
== END | disposition home or self-care (01) ==
LOC: C.ULTR 12:56
PROVIDERS: ATTEND Internal Medicine
DX: R09.89 Other specified symptoms and signs involving the circulatory and respiratory systems (principal); I10 Essential (primary) hypertension

== ENCOUNTER 2022-08-28 08:23 | Inpatient (IN) ==
--- NOTE | 2022-08-18 16:06 | Anesthesiology Consultation ---
Date of Service August 18, 2022 Assessment & Plan (1) Encounter for pre-operative examination: COVID screening: Per assessment on 08/18: No known COVID-19 positive contacts or current COVID-19 related symptoms. Travel screen negative. Patient vaccinated. At surgeon discretion if preop Covid testing being done. Chart Review Chart Review: Acceptable Risk for Surgery and Patient NOT seen in Pre Admission Testing History Surgery Operation Date: 08/28/22 10:25 Proposed Procedures p L3-L4 Decompression and Fusion, L4-L5 [place]ward Removal, Spinal Cord Monitoring - [place], Height/Weight Height: 5 ft 5.5 in Weight: 58.967 kg Allergies Allergy/AdvReac Type Severity Reaction Status Date / Time bee venom protein (honey bee) Allergy Severe SEVERE Verified 08/18/22 15:08 THROAT SWELLING Penicillins Allergy Severe Rash, Verified 08/18/22 15:08 Throat Swelling Sulfa (Sulfonamide Allergy Severe RASH,HIVES, Verified 08/18/22 15:08 Antibiotics) SOB doxepin Allergy Intermediate SWELLING Verified 08/18/22 15:08 esomeprazole Allergy Intermediate HIVES Verified 08/18/22 15:08 mushroom Allergy Intermediate SWELLING Verified 08/18/22 15:08 WITH INGESTION pravastatin Allergy Intermediate SWELLING Verified 08/18/22 15:08 adhesive Allergy Mild RASH Verified 08/18/22 15:08 aspirin Allergy Mild AVOID DUE Verified 08/18/22 15:08 TO HX ULCERS metronidazole Allergy Mild ITCHING ON Verified 08/18/22 15:08 HEAD ?DUE TO FLAGYL Medications Home Medications Medication Instructions Recorded Confirmed Last Taken ascorbic acid (vitamin C) 500 mg 500 mg PO QAM 10/03/18 08/18/22 01/07/22 tablet cholecalciferol (vitamin D3) 25 1,000 unit PO QAM 10/03/18 08/18/22 01/07/22 mcg (1,000 unit) tablet (Vitamin D3) furosemide 20 mg tablet (Lasix) 20 mg PO DAILY PRN edema #30 tabs 10/29/21 08/18/22 01/07/22 alendronate 70 mg tablet (Fosamax) 70 mg PO WEEKLY #12 tabs 12/30/21 08/18/22 01/06/22 atorvastatin 20 mg tablet 20 mg PO QAM 01/02/22 08/18/22 01/08/22 06:00 pantoprazole 40 mg tablet,delayed 40 mg PO QAM 01/02/22 08/18/22 01/07/22 06:00 release amlodipine 5 mg tablet 5 mg PO QAM #90 tabs 02/18/22 08/18/22 Unknown lisinopril 20 mg tablet 20 mg PO QAM #90 tabs 02/18/22 08/18/22 Unknown meloxicam 7.5 mg tablet 7.5 mg PO DAILY PRN pain #90 tabs 02/18/22 08/18/22 Unknown meclizine 25 mg tablet 25 mg PO Q8H PRN motion sickness 03/24/22 08/18/22 Unknown #30 tabs tramadol 50 mg tablet (Ultram) 50 mg PO Q6H PRN pain #30 tabs 08/07/22 08/18/22 Unknown famotidine 20 mg tablet 20 mg PO QAM 08/18/22 08/18/22 Unknown Past Medical History Medical History (Updated 08/18/22 @ 16:05 by Yany Giordano) GERD (gastroesophageal reflux disease) 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 History of basal cell carcinoma eyelid HTN (hypertension) Hx of gastric ulcer Hx of migraines Hx of renal calculi Hyperlipidemia Lumbar stenosis with neurogenic claudication Osteoporosis Fosamax started 01/2020 Temporomandibular joint disorder NO LOCKING>HAS NOT HAD ISSUES FOR A WHILE Tinnitus of right ear Past Family History Family History Brother Stroke Family history of reaction to anesthesia long time to wake up Father Cancer Mother Cancer Other No significant family history Denies family history of Hearing loss No family history of adverse response to anesthesia Heart disease Allergies Hypertension Asthma Past Surgical History Surgical History (Updated 08/18/22 @ 15:16 by Radha Huynh RN) H/O local excision of skin lesion NOSE AREA "PRE-CANCEROUS SKIN" H/O right hemicolectomy D/T BOWEL PERFORATION History of bilateral cataract extraction History of colonoscopy History of esophagogastroduodenoscopy (EGD) History of incisional hernia repair History of lumbar spinal fusion History of Mohs micrographic surgery for skin cancer basal cell on eyelid/FOREHEAD History of tonsillectomy History of tooth extraction History of total abdominal hysterectomy and bilateral salpingo-oophorectomy History of wisdom tooth extraction Nausea and vomiting after administration of anesthetic agent S/P cholecystectomy S/P hip replacement left Social History Smoking Status: Never smoker Hx Alcohol Use: No substance use type: does not use Lab Results Anesthesia Preop Results Results Anesthesia Widget: WBC 7.86 K/ul (4.8-10.8) 08/18/22 Hgb 12.0 g/dl (12.0-16.0) 08/18/22 Hct 37.6 % (34.1-44.9) 08/18/22 Plt 389 K/uL (130-400) 08/18/22 Na 140 mmol/L (136-145) 08/18/22 K 4.0 mmol/L (3.5-5.1) 08/18/22 Cl 104 mmol/L (98-107) 08/18/22 CO2 28 mmol/L (21-32) 08/18/22 BUN 23 mg/dl (6-23) 08/18/22 Creat 0.69 mg/dl (0.6-1.2) 08/18/22 Glucose Level 78 mg/dl (70-99(Fasting)) 08/18/22 PT 10.4 Seconds (9.0-12.0) 08/18/22 PTT 26.5 Seconds (21.0-31.0) 08/18/22 INR 1.0 (0.9-1.1) 08/18/22 Urine Color Yellow 08/18/22 Urine Appearance Clear (Clear) 08/18/22 Urine pH 6.5 (4.5-7.5) 08/18/22 Urine Specific [place] 1.020 (1.000-1.030) 08/18/22 Urine Protein Negative (Negative) 08/18/22 Urine Glucose (UA) Negative (Negative) 08/18/22 Urine Ketones Negative (Negative) 08/18/22 Urine Blood Negative (Negative) 08/18/22 Urine Nitrite Negative (Negative) 08/18/22 Urine Bilirubin Negative (Negative) 08/18/22 Urine Urobilinogen Negative (Negative) 08/18/22 Urine Leukocyte Esterase Negative (Negative) 08/18/22 Blood Type O Positive 08/18/22 Antibody Screen NEGATIVE 08/18/22 Testing Electrocardiogram Date: 08/18/22 Findings: + NSR @ (81) Chest X-Ray Date: 08/18/22 Findings: + NAD
[~2022-08-28 08:23] MED LIST changes: +ACETAMINOPHEN 500 MG TAB PO SCH; -ASCA500 PO; -ATOR-22 PO; -CHOL1000 PO; +CLINDAMYCIN/D5W 600 MG/50 ML BAG **Premixed Bag IV SCH; +GABAPENTIN 300 MG CAP PO SCH; -LISI20TA3 PO; +LR 15ML/HR IV SCH; -MULT-506 PO; -PANT40TA PO; -ZNT/300 PO
[2022-08-28] MEDS ORDERED: fentaNYL citrate 100 MCG/2 ML VIAL ONE (10:21)
[2022-08-28] MEDS ORDERED: MIDAZOLAM HCL 1 MG/ML 2ML VIAL ONE (10:21)
[2022-08-28] MEDS ORDERED: HYDROmorphone INJ 2 MG/ML SYR/VIAL ONE (10:22)
[2022-08-28] MEDS ORDERED: SCOPOLAMINE 1 MG TDSY TD ONE ×2 (10:40→10:42)
[2022-08-28] MEDS ORDERED: FAMOTIDINE/PF 20 MG/2 ML VIAL IV ONE (10:46)
[2022-08-28] MEDS: APREPITANT 40 MG CAP PO STA (10:53)
--- NOTE | 2022-08-28 10:57 | History & Physical Bridge Note ---
Date of Service August 28, 2022 History & Physical Bridge Note I have examined the patient, reviewed the History & Physical and in the interval since the performance of the History & Physical I have noted the following changes of clinical significance: no changes noted
--- NOTE | 2022-08-28 10:58 | History & Physical Report ---
Date of Service August 28, 2022 Assessment & Plan (1) Lumbar stenosis with neurogenic claudication: Plan: L3-L4 decompression fusion, L4-L5 hardware removal History of Present Illness Chief Complaint: Back and leg pain Primary Care Provider: Aury Gibson MD This is a 76-year-old female presents with current persistent back and leg pain. After failing since course of nonoperative care she is here for surgical invention. Allergies Allergy/AdvReac Type Severity Reaction Status Date / Time bee venom protein (honey bee) Allergy Severe SEVERE Verified 08/28/22 08:45 THROAT SWELLING Penicillins Allergy Severe Rash, Verified 08/28/22 08:45 Throat Swelling Sulfa (Sulfonamide Allergy Severe RASH,HIVES, Verified 08/28/22 08:45 Antibiotics) SOB doxepin Allergy Intermediate SWELLING Verified 08/28/22 08:45 esomeprazole Allergy Intermediate HIVES Verified 08/28/22 08:45 mushroom Allergy Intermediate SWELLING Verified 08/28/22 08:45 WITH INGESTION pravastatin Allergy Intermediate SWELLING Verified 08/28/22 08:45 adhesive Allergy Mild RASH Verified 08/28/22 08:45 aspirin Allergy Mild AVOID DUE Verified 08/28/22 08:45 TO HX ULCERS metronidazole Allergy Mild ITCHING ON Verified 08/28/22 08:45 HEAD ?DUE TO FLAGYL Home Medications Medication Instructions Recorded Confirmed Type ascorbic acid (vitamin C) 500 mg 500 mg PO QAM 10/03/18 08/28/22 History tablet cholecalciferol (vitamin D3) 25 1,000 unit PO QAM 10/03/18 08/28/22 History mcg (1,000 unit) tablet (Vitamin D3) furosemide 20 mg tablet (Lasix) 20 mg PO DAILY PRN edema #30 tabs 10/29/21 08/28/22 Rx alendronate 70 mg tablet (Fosamax) 70 mg PO WEEKLY #12 tabs 12/30/21 08/28/22 Rx atorvastatin 20 mg tablet 20 mg PO QAM 01/02/22 08/28/22 History pantoprazole 40 mg tablet,delayed 40 mg PO QAM 01/02/22 08/28/22 History release amlodipine 5 mg tablet 5 mg PO QAM #90 tabs 02/18/22 08/28/22 Rx lisinopril 20 mg tablet 20 mg PO QAM #90 tabs 02/18/22 08/28/22 Rx meloxicam 7.5 mg tablet 7.5 mg PO DAILY PRN pain #90 tabs 02/18/22 08/28/22 Rx meclizine 25 mg tablet 25 mg PO Q8H PRN motion sickness 03/24/22 08/28/22 Rx #30 tabs famotidine 20 mg tablet 20 mg PO QAM 08/18/22 08/28/22 History tramadol 50 mg tablet (Ultram) 50 mg PO Q6H PRN pain #30 tabs 08/25/22 08/28/22 Rx Past Med/Surg History Medical History GERD (gastroesophageal reflux disease) 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 History of basal cell carcinoma eyelid HTN (hypertension) Hx of gastric ulcer Hx of migraines Hx of renal calculi Hyperlipidemia Lumbar stenosis with neurogenic claudication Osteoporosis Fosamax started 01/2020 Temporomandibular joint disorder NO LOCKING>HAS NOT HAD ISSUES FOR A WHILE Tinnitus of right ear Surgical History H/O local excision of skin lesion H/O right hemicolectomy History of bilateral cataract extraction History of colonoscopy History of esophagogastroduodenoscopy (EGD) History of incisional hernia repair History of lumbar spinal fusion History of Mohs micrographic surgery for skin cancer History of tonsillectomy History of tooth extraction History of total abdominal hysterectomy and bilateral salpingo-oophorectomy History of wisdom tooth extraction Nausea and vomiting after administration of anesthetic agent S/P cholecystectomy S/P hip replacement Family History Brother Stroke Family history of reaction to anesthesia Father Cancer Mother Cancer Other No significant family history Denies family history of Hearing loss No family history of adverse response to anesthesia Heart disease Allergies Hypertension Asthma Social History Smoking Status: Former smoker Tobacco Type: Cigarettes packs per day: 0.5; Years Smoked: 2; Second Hand Exposure: No; Hx Alcohol Use: No Hx Substance Use: No Preferred Language: Gambian Communication Ability: Effective Shoemaking Cutter Required: No Beliefs That Will Affect Care: None marital status: Current Living Situation: Alone current occupational status: retired How many Children do You have Comment: Adopted son currently lives with her, he has Curry's disease and 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 Feels Safe at Home: Yes Safety Concerns: Feels Safe At This Time Childhood Exposure to Second-Hand Smoke: No caffeine: Yes (Hot tea ) Dental Care, Regularly: Yes Physical Activity Frequency: Does not Exercise Physical Activity Frequency Comment: Is active throughout the day Seatbelt Use: always Sunscreen Use: Yes Assistive Devices: Glasses Assistive Devices Comment: PARTIAL PLATE Physical Exam Physical Exam: Patient is alert and oriented Heart regular rhythm Lungs clear Results & Data Results & Data ([facility]) Vital Signs (Past 12 Hours) Vital Signs Temp Pulse Resp BP Pulse Ox O2 Del Method 08/28/22 08:49 36.8 C 97 H 20 168/108 H 98 Room Air
[2022-08-28] MEDS ORDERED: ceFAZolin 330 MG/ML 1 GM VIAL ONE (11:04)
[2022-08-28] MEDS ORDERED: BUPIVACAINE/EPINEPHRINE 0.25% 1:200,000 30 ML VIAL ONE (11:04)
[2022-08-28] MEDS ORDERED: FLOSEAL HEMOSTATIC MATRIX 10ML TOP ONE (12:00)
[2022-08-28] MEDS ORDERED: ROCURONIUM BROMIDE 10 MG/ML 5 ML VIAL IV ONE (12:27)
[2022-08-28] MEDS ORDERED: PROPOFOL IV EMULSION 10 MG/ML 20 ML VIAL IV ONE (12:27)
[2022-08-28] MEDS ORDERED: PHENYLEPHRINE HCL 10 MG/ML VIAL ONE (12:27)
[2022-08-28] MEDS ORDERED: NEOSTIGMINE METHYLSULFATE 1 MG/ML 10ML VIAL ONE (12:27)
[2022-08-28] MEDS ORDERED: ONDANSETRON INJ 2 MG/ML 2 ML VIAL ONE (12:27)
[2022-08-28] MEDS ORDERED: GLYCOPYRROLATE 0.2 MG/ML VIAL ONE (12:27)
[2022-08-28] MEDS ORDERED: DEXAMETHASONE SOD INJ 4 MG/ML VIAL ONE (12:27)
--- NOTE | 2022-08-28 13:00 | Operative Report ---
Post Operative Report Pre & Post Diagnosis Operation Date: 08/28/22 10:05 Pre-Op Diagnosis: Lumbar stenosis with neurogenic claudication Post-Op Diagnosis: Lumbar stenosis with neurogenic claudication Osteoporosis I identified the patient and participated in the time-out.: Yes Procedure Operation Date: 08/28/22 10:05 Actual Procedures #1 removal of posterior instrumentation L4-5. #2 exploration of fusion L4-5 per #3 lumbar decompression bilateral medial facetectomies and foraminotomies L2-3 L3-L4 per #4 posterior spinal fusion L3-L4. #5 placement posterior instrumentation L3-L4. #6 interbody fusion L3-L4. #7 placement of Spira 12 x 22 mm cage at L3-L4. #8 placement locally harvested morselized autograft in the posterior gutters. #9 placement of I factor, V toss in the interbody space and posterior gutters. Surgeon Ok Alba, Property Administrator Suzanne Busby Estimated Blood Loss 100 Findings Consistent with Post-Op Diagnosis Specimens None Indications This is a 76-year-old female who presents above-mentioned diagnosis after failed extensive course of nonoperative care she is here for surgical invention. Description of Procedure ExpectedPatient is now identified informed consent obtained. Patient was then taken to the operative suite underwent an patient placed in a prone position the Clifton table on top of the Javier frame. All bony prominences well-padded ensure no external pressure placed upon them. This point lumbar spine was prepped and draped in a sterile fashion. Sharp dissection with the assistance of bradycardia was performed down to and exposing the lamina and transverse processes of L3 and instrumentation L4-L5 bilaterally. And then proceeded move the hardware bilaterally at L4-5 explored the fusion mass noting it to be mature and intact. Informed complete laminectomy L3 partial laminectomy of L2 acknowledging evidence of advanced osteoporosis with soft bone. I did perform bilateral medial facetectomies and foraminotomies addressing severe spinal stenosis and neural encroachment. Pedicle screws were then placed at L3-L4 bilaterally with assistance of fluoroscopy and the properly sized silver placed. By way of a transforaminal approach on the left complete discectomy L3-L4 was performed endplates curetted to subcortical bleeding bone and a 12 x 22 mm spiral cage filled with I factor tapped in position. The rods then compressed locked in final position bilaterally. Transverse processes of L3-L4 burred to subcortical bleeding bone. I factor combined with V toss and locally harvested morselized autograft was then placed in the posterior gutters. 15 round MEHRDAD inserted. The incision was then closed with 1 Vicryl in the fascia 2-0 Vicryl subcutaneously and 4 Monocryl for final skin closure. Steri-Strip sterile dressings placed. Patient waken taken back in stable condition. Please note spinal cord monitoring was utilized at the procedure no changes noted. Lastly Suzanne Busby was present out the entire procedure and while the patient positioning complex portion of the surgery and final skin closure. I attest to the content of the Intraoperative Record and any orders documented therein. Any exceptions are noted below.
[2022-08-28] MEDS ORDERED: SUGAMMADEX SODIUM 200 MG/2 ML VIAL IV ONE (13:05)
--- NOTE | 2022-08-28 13:25 | Fluoroscopy Report ---
FL lumbar spine 2-3V CLINICAL HISTORY: L3-L4 DECOMPRESSION AND FUSION L4-L5 HW REMOVAL COMPARISON STUDY: None. FLUOROSCOPY TIME: 10 seconds. FINDINGS: 2 fluoroscopic spot images of the lumbar spine demonstrate posterior decompression and fusi on L3-L4 with pedicle screws and rods. Hardware appears intact. A disc spacer is in place. IMPRESSION: Fluoroscopic assistance provided for L3-L4 posterior decompression and fusion. ACT 112: Negative or not required by law. Electronically signed by: Adal Slaughter M.D. 08/28/2022 1:23 PM
[2022-08-28] MEDS ORDERED: diphenhydrAMINE Capsule 25 MG CAP PO PRN (14:32)
[2022-08-28] MEDS ORDERED: MAGNESIUM HYDROXIDE SUSP 30 ML UDC PO PRN (14:32)
[2022-08-28] MEDS ORDERED: SOD PHOSPHATE/SOD BIPHOSPHATE ENEMA 132 ML BTL PR PRN (14:32)
[2022-08-28] MEDS ORDERED: LORazepam 0.5 MG TAB PO PRN (14:32)
[2022-08-28] MEDS ORDERED: HYDROmorphone INJ 1 MG/ML SYRINGE IV PRN (14:32)
[2022-08-28] MEDS ORDERED: MECLIZINE HCL 25 MG TAB PO PRN (14:32)
[2022-08-28] MEDS ORDERED: ALUMINUM/MAGNESIUM SUSP 30 ML UDC PO PRN (14:32)
[2022-08-28] MEDS ORDERED: oxyCODONE HCL IR 5 MG TAB (IMMEDIATE RELEASE) PO PRN (14:32)
[2022-08-28] MEDS ORDERED: FAMOTIDINE 20 MG TAB PO PRN (14:32)
[2022-08-28] MEDS ORDERED: METOCLOPRAMIDE HCL INJ 5 MG/ML 2 ML VIAL IV PRN (14:32)
[2022-08-28] MEDS ORDERED: ONDANSETRON 4 MG OD TAB PO PRN (14:32)
[2022-08-28] MEDS ORDERED: PROMETHAZINE HCL 12.5 MG in SODIUM CHLORIDE 0.9% 50 ML IV PRN (14:32)
[2022-08-28] MEDS ORDERED: LORazepam 0.5 MG in SYRINGE 0 ML IV PRN (14:32)
[2022-08-28] MEDS ORDERED: FUROSEMIDE 20 MG TAB PO PRN (14:32)
[2022-08-28] MEDS ORDERED: ACETAMINOPHEN 500 MG TAB PO PRN (14:32)
[2022-08-28] MEDS ORDERED: ACETAMINOPHEN 1,000 MG/100 ML VIAL IV PRN (14:32)
[2022-08-28] MEDS ORDERED: hydrOXYzine HCl 25 MG TAB PO PRN (14:32)
[2022-08-28] MEDS ORDERED: HYDROmorphone INJ 0.5 MG/0.5 ML SYR IV PRN (14:32)
[2022-08-28] MEDS ORDERED: ONDANSETRON INJ 2 MG/ML 2 ML VIAL IV PRN (14:32)
[2022-08-28] MEDS ORDERED: bisacodyL 10 MG SUPP PR PRN (14:32)
[2022-08-28] MEDS ORDERED: NALOXONE HCL 0.4 MG/1 ML VIAL/CARP IV PRN (14:32)
[2022-08-28] MEDS: SODIUM CHLORIDE 0.9% 1000ML 1,000 ML IV SCH (14:35)
--- NOTE | 2022-08-28 15:45 | Anesthesiology Progress Note ---
Date of Service August 28, 2022 Anesthesia Post Procedure Vital Signs Vital Signs: Temp Pulse Pulse Resp BP Pulse Ox O2 Del Method 08/28/22 15:08 36.4 C L 44 L 14 119/68 93 Room Air 08/28/22 14:32 36.5 C 78 14 130/76 94 Nasal Cannula 08/28/22 14:15 36.7 C 79 10 L 119/67 98 Room Air 08/28/22 14:05 36.7 C 82 14 122/66 93 Room Air 08/28/22 13:55 36.7 C 88 15 135/77 95 Room Air 08/28/22 13:45 36.7 C 84 11 L 135/77 99 Room Air 08/28/22 13:35 84 12 142/81 H 100 Oxymask 08/28/22 13:25 92 H 15 154/85 H 99 Oxymask 08/28/22 13:18 36.7 C 90 18 149/94 H 99 Oxymask 08/28/22 08:49 36.8 C 97 H 20 168/108 H 98 Room Air O2 Flow Rate 08/28/22 15:08 08/28/22 14:32 2 08/28/22 14:15 08/28/22 14:05 08/28/22 13:55 08/28/22 13:45 08/28/22 13:35 3 08/28/22 13:25 5 08/28/22 13:18 7 08/28/22 08:49 Transfer of Care Handoff Completed per policy Notes Mental Status: alert / awake / arousable and participated in evaluation Patient Amnestic to Procedure: Yes Nausea / Vomiting: adequately controlled Pain: adequately controlled Airway Patency, RR, SpO2: stable & adequate BP & HR: stable & adequate Hydration State: stable & adequate Anesthetic Complications: no major complications apparent and Pt Satisfied with anesthetic care
--- NOTE | 2022-08-28 16:19 | Hospitalist Consultation ---
Date of Consultation August 28, 2022 Assessment & Plan (1) Lumbar stenosis with neurogenic claudication: - PODD #0. EBL 100 cc. Without complications. 1 MEHRDAD drain placed. - Pain/ABX/IVF/diet/drain management/transfusion needs/activity per primary team - Rescue Narcan ordered for over sedation PRN - VTE prophylaxis per primary service- SCDs in place - CBC and BMP in AM. - Baseline renal function: Cr 0.69, GFR 84.6. - Baseline Hgb: 12.0 on 08/18. (2) Hx of gastric ulcer: - Given history of gastric ulcer, will avoid NSAIDs for pain control, as she is scheduled IV steroids once daily, consider increasing PPI to twice daily. - Monitor hemoglobin on morning labs. (3) HTN (hypertension): - Hold lisinopril until POD #2, however can restart pending adequate renal function on POD #1 patient is significantly hypertensive. - Okay to continue amlodipine tomorrow POD #1. (4) Hyperlipidemia: - Continue statin 20 mg daily. (5) Acid reflux: - Continue Pepcid 20 mg with pantoprazole 40 mg in the morning. (6) Lower extremity edema: - Prescribed Lasix 20 mg on an as-needed basis. - Would hold on this until POD #2 unless necessary. (7) Osteoporosis: - Takes Fosamax weekly. Plan - Admitted to [facility] per primary team. - SCDs ordered for VTE PPx per primary team. - Full code. Patient has two COVID tests from this AM, one is positive and the other is negative. Will discuss the need for isolation precuations with infection control. Plan of care discussed with my attending physician, Dr. Isaac. History of Present Illness Reason for Consultation: Postop medical management Requesting Physician: Ok Alba DO Attending Physician: Ok Alba DO History of Present Illness Libra Clarke is a 76-year-old female with a past medical history significant for hypertension, lower extremity edema, hyperlipidemia, GERD, osteoporosis, and lumbar stenosis who was admitted today, 08/28 for a L3-L4 decompression fusion with L4-L5 hardware removal with Dr. Alba. She has had persistent back and leg pain and has failed outpatient, nonoperative care. Hospitalist group was consulted for post-operative medication management. Today, she is POD#0 and feels well. She has some mild pain and nausea post- operatively but appears to be resting comfortably in bed. Conversing easily without SOB. Denies fever/chills, weakness, chest pain, palpitations, shortness of breath, cough, orthopnea, abdominal pain, nausea, vomiting. Allergies Allergy/AdvReac Type Severity Reaction Status Date / Time bee venom protein (honey bee) Allergy Severe SEVERE Verified 08/28/22 08:45 THROAT SWELLING Penicillins Allergy Severe Rash, Verified 08/28/22 08:45 Throat Swelling Sulfa (Sulfonamide Allergy Severe RASH,HIVES, Verified 08/28/22 08:45 Antibiotics) SOB doxepin Allergy Intermediate SWELLING Verified 08/28/22 08:45 esomeprazole Allergy Intermediate HIVES Verified 08/28/22 08:45 mushroom Allergy Intermediate SWELLING Verified 08/28/22 08:45 WITH INGESTION pravastatin Allergy Intermediate SWELLING Verified 08/28/22 08:45 adhesive Allergy Mild RASH Verified 08/28/22 08:45 aspirin Allergy Mild AVOID DUE Verified 08/28/22 08:45 TO HX ULCERS metronidazole Allergy Mild ITCHING ON Verified 08/28/22 08:45 HEAD ?DUE TO FLAGYL Home Medications Medication Instructions Recorded Confirmed Type ascorbic acid (vitamin C) 500 mg 500 mg PO QAM 10/03/18 08/28/22 History tablet cholecalciferol (vitamin D3) 25 1,000 unit PO QAM 10/03/18 08/28/22 History mcg (1,000 unit) tablet (Vitamin D3) furosemide 20 mg tablet (Lasix) 20 mg PO DAILY PRN edema #30 tabs 10/29/21 08/28/22 Rx alendronate 70 mg tablet (Fosamax) 70 mg PO WEEKLY #12 tabs 12/30/21 08/28/22 Rx atorvastatin 20 mg tablet 20 mg PO QAM 01/02/22 08/28/22 History pantoprazole 40 mg tablet,delayed 40 mg PO QAM 01/02/22 08/28/22 History release amlodipine 5 mg tablet 5 mg PO QAM #90 tabs 02/18/22 08/28/22 Rx lisinopril 20 mg tablet 20 mg PO QAM #90 tabs 02/18/22 08/28/22 Rx meloxicam 7.5 mg tablet 7.5 mg PO DAILY PRN pain #90 tabs 02/18/22 08/28/22 Rx meclizine 25 mg tablet 25 mg PO Q8H PRN motion sickness 03/24/22 08/28/22 Rx #30 tabs famotidine 20 mg tablet 20 mg PO QAM 08/18/22 08/28/22 History tramadol 50 mg tablet (Ultram) 50 mg PO Q6H PRN pain #30 tabs 08/25/22 08/28/22 Rx Patient History Medical History (Updated 08/28/22 @ 16:13 by Essie Reece PA-C) GERD (gastroesophageal reflux disease) 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 History of basal cell carcinoma eyelid HTN (hypertension) Hx of gastric ulcer Hx of migraines Hx of renal calculi Hyperlipidemia Lumbar stenosis with neurogenic claudication Osteoporosis Fosamax started 01/2020 Temporomandibular joint disorder NO LOCKING>HAS NOT HAD ISSUES FOR A WHILE Tinnitus of right ear Surgical History H/O local excision of skin lesion NOSE AREA "PRE-CANCEROUS SKIN" H/O right hemicolectomy D/T BOWEL PERFORATION History of bilateral cataract extraction History of colonoscopy History of esophagogastroduodenoscopy (EGD) History of incisional hernia repair History of lumbar spinal fusion History of Mohs micrographic surgery for skin cancer basal cell on eyelid/FOREHEAD History of tonsillectomy History of tooth extraction History of total abdominal hysterectomy and bilateral salpingo-oophorectomy History of wisdom tooth extraction Nausea and vomiting after administration of anesthetic agent S/P cholecystectomy S/P hip replacement left Family History Brother Stroke Family history of reaction to anesthesia long time to wake up Father Cancer Mother Cancer Other No significant family history Denies family history of Hearing loss No family history of adverse response to anesthesia Heart disease Allergies Hypertension Asthma Social History Smoking Status: Former smoker Tobacco Type: Cigarettes packs per day: 0.5; Years Smoked: 2; Second Hand Exposure: No; Hx Alcohol Use: No Hx Substance Use: No Preferred Language: Occitan Communication Ability: Effective 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 Feels Safe at Home: Yes Safety Concerns: Feels Safe At This Time Childhood Exposure to Second-Hand Smoke: No caffeine: Yes (Hot tea ) Dental Care, Regularly: Yes Physical Activity Frequency: Does not Exercise Physical Activity Frequency Comment: Is active throughout the day Seatbelt Use: always Sunscreen Use: Yes Assistive Devices: Cane and Walker Assistive Devices Comment: PARTIAL PLATE Review of Systems Review of Systems: Constitutional: No fever/chills, weakness, fatigue, myalgias, anorexia, night sweats Eyes: No diplopia, no worsening or blurred vision ENT: normal hearing, no trouble swallowing Respiratory: No cough, sputum, dyspnea at rest or on exertion Cardiovascular: No chest pain, tightness or palpitations Abdomen: mild nausea post-anesthesia; No pain, vomiting, diarrhea or constipation : Denies dysuria, hematuria, increased urgency/frequency, urinary retention Musculoskeletal: mild back pain post-op; No other joint pain, calf pain, swelling Neurologic: No weakness, numbness/tingling, or balance problems Psychiatric: No anxiety or depression Skin: No rash or itch Physical Exam Physical Exam: General: awake, alert, no apparent distress Head: Normocephalic, atraumatic ENT: PERRL, EOMI, no pharyngeal exudate, mucous membranes moist Chest: Clear to auscultation, on room air, no adventitious breath sounds Cardiac: Regular rate and rhythm, no murmur, no JVD, normal peripheral pulses, good capillary refill Abdominal: NABS x 4 quadrants, soft, nontender to palpation, no rebound, guarding or tenderness Extremities: Normal inspection, no peripheral edema or erythema, calfs nontender to palpation Psych: Normal mood and affect Neuro: AAO x 3, strength intact bilaterally and rated 5/5, no motor deficits, speech is clear, no peripheral sensory deficits Skin: no rash or erythema Results & Data Results & Data ([facility]) Vital Signs (Past 12 Hours) Vital Signs Temp Pulse Pulse Resp BP Pulse Ox O2 Del Method 08/28/22 15:49 36.2 C L 76 14 128/72 97 Room Air 08/28/22 15:08 36.4 C L 44 L 14 119/68 93 Room Air 08/28/22 14:32 36.5 C 78 14 130/76 94 Nasal Cannula 08/28/22 14:15 36.7 C 79 10 L 119/67 98 Room Air 08/28/22 14:05 36.7 C 82 14 122/66 93 Room Air 08/28/22 13:55 36.7 C 88 15 135/77 95 Room Air 08/28/22 13:45 36.7 C 84 11 L 135/77 99 Room Air 08/28/22 13:35 84 12 142/81 H 100 Oxymask 08/28/22 13:25 92 H 15 154/85 H 99 Oxymask 08/28/22 13:18 36.7 C 90 18 149/94 H 99 Oxymask 08/28/22 08:49 36.8 C 97 H 20 168/108 H 98 Room Air O2 Flow Rate 08/28/22 15:49 08/28/22 15:08 08/28/22 14:32 2 08/28/22 14:15 08/28/22 14:05 08/28/22 13:55 08/28/22 13:45 08/28/22 13:35 3 08/28/22 13:25 5 08/28/22 13:18 7 08/28/22 08:49 Laboratory Results Abnormal lab results 08/28/22 Range/Units 08:28 SARS-CoV-2, RNA, NAAT POSITIVE A* (NEGATIVE) Diagnostic Findings Lumbar Spine X-Ray 08/28/22 10:05 FL lumbar spine 2-3V CLINICAL HISTORY: L3-L4 DECOMPRESSION AND FUSION L4-L5 HW REMOVAL COMPARISON STUDY: None. FLUOROSCOPY TIME: 10 seconds. FINDINGS: 2 fluoroscopic spot images of the lumbar spine demonstrate posterior decompression and fusion L3-L4 with pedicle screws and rods. Hardware appears intact. A disc spacer is in place. IMPRESSION: Fluoroscopic assistance provided for L3-L4 posterior decompression and fusion. ACT 112: Negative or not required by law. Electronically signed by: Adal Slaughter M.D. 08/28/2022 1:23 PM PG Care Time/CCT Total # of Minutes Spent Total Time Spent with Patient: Total time spent is greater than 50% in coordination of care (as documented) at patient's floor/unit and/or counseling patient: Coding Level of Care Code 35965 Inpt Consult Level 4 Diagnoses Lumbar stenosis with neurogenic claudication M48.062 Hx of gastric ulcer Z87.19 HTN (hypertension) I10 Hyperlipidemia E78.5 Acid reflux K21.9 Lower extremity edema R60.0 Osteoporosis M81.0
[2022-08-28] MEDS: CHECK SCOPOLAMINE PATCH PLACEMENT SCH (17:00)
[2022-08-28] MEDS ORDERED: FAMOTIDINE 20 MG TAB PO STA (19:43)
[2022-08-28] MEDS ORDERED: PANTOprazole 40 MG TAB PO STA (19:43)
[2022-08-28] MEDS: CLINDAMYCIN/D5W 600 MG/50 ML BAG IV SCH (19:49)
[2022-08-28] MEDS: DOCUSATE SODIUM/SENNA 50/8.6MG TAB PO SCH (20:52)
[2022-08-28] MEDS: traMADol HCL 50 MG TABLET PO PRN (22:51)
[2022-08-29] MEDS: SODIUM CHLORIDE 0.9% 1000ML 1,000 ML IV SCH (00:40)
[2022-08-29] MEDS: CHECK SCOPOLAMINE PATCH PLACEMENT SCH ×4 (00:41→23:10)
[2022-08-29] MEDS: CLINDAMYCIN/D5W 600 MG/50 ML BAG IV SCH (03:28)
[2022-08-29] MEDS ORDERED: POLYETHYLENE (MIRALAX) 17 GM PACK PO SCH (06:00)
[2022-08-29] MEDS: dexAMETHasone 6 MG in SYRINGE 0 ML IV SCH (07:37)
[2022-08-29] MEDS: ASCORBIC ACID 500 MG TAB PO SCH (07:38)
[2022-08-29] MEDS: CHOLECALCIFEROL 1,000 UNITS 25 MCG TAB PO SCH (07:38)
[2022-08-29] MEDS: PANTOprazole 40 MG TAB PO SCH (07:38)
[2022-08-29] MEDS: amLODIPine BESYLATE 5 MG TAB PO SCH (07:38)
[2022-08-29] MEDS: ATORVASTATIN 20 MG TAB PO SCH (07:38)
[2022-08-29] MEDS: FAMOTIDINE 20 MG TAB PO SCH (07:38)
[2022-08-29] MEDS ORDERED: lisinopril 20 MG TAB PO SCH (09:00)
[2022-08-29] MEDS ORDERED: Nursing to Pharmacy Communication SCH (09:30)
[2022-08-29 09:34] LABS: Hematocrit (blood only) 32.8 % (34.1-44.9); Hemoglobin 10.7 g/dl (12.0-16.0); Mean Corpuscular Hemoglobin 30.1 pg (25.0-34.0); Mean Corpuscular Hgb Conc 32.6 g/dL (32.0-36.0); Mean Corpuscular Volume 92.1 fL (80.0-100.0); Mean Platelet Volume 10.5 fL (9.4-12.3); Platelet Count 331 K/uL (130-400); RDW Coefficient of Variation 13.2 % (11.5-14.5); RDW Standard Deviation 44.2 fL (36.4-46.3); Red Blood Count 3.56 M/uL (3.93-5.22); White Blood Count 16.44 K/ul (4.8-10.8)
--- NOTE | 2022-08-29 09:42 | Orthopedic Progress Note ---
Date of Service August 29, 2022 Assessment & Plan (1) Lumbar stenosis with neurogenic claudication: Plan: At this time we will continue physical therapy monitor MEHRDAD operatively discharge home F this weekend. Admission and Anticipated Discharge Date Admission Date: August 28, 2022 Subjective Back pain controlled leg pain markedly improved Physical Exam Physical Exam: Patient is in the chair at the bedside. Skin strength testing. Peers comfortable. Results & Data ([facility]) Vital Signs (Past 12 Hours) Vital Signs Temp Pulse Resp BP Pulse Ox O2 Del Method 08/29/22 07:35 36.7 C 80 18 125/74 96 Room Air 08/29/22 03:07 36.5 C 80 16 119/70 96 Room Air 08/28/22 22:40 36.5 C 82 16 132/74 97 Room Air
[2022-08-29 10:00] LABS: BUN Creatinine Ratio 25.4 (10-20); Calcium 9.2 mg/dl (8.5-10.1); Creatinine Clr Calc Pharmacy 65.6 ml/min; Est GFR (Non-African American) 85.4 ml/min; Potassium 4.1 mmol/L (3.5-5.1)
[2022-08-29 10:19] LABS: Basophils # (auto) 0.02 K/uL (0-0.2); Basophils % (auto) 0.1 %; Immature Granulocytes # (auto) 0.11 K/uL (0.00-0.02); Immature Granulocytes % (auto) 0.7 %; Lymphocytes # (auto) 0.68 K/uL (1.2-3.4); Lymphocytes % (auto) 4.1 %; Monocytes # (auto) 0.63 K/uL (0.24-0.82); Monocytes % (auto) 3.8 %; Neutrophils % (auto) 91.3 %
[2022-08-29] MEDS: traMADol HCL 50 MG TABLET PO PRN ×2 (13:53→22:17)
--- NOTE | 2022-08-29 15:24 | Hospitalist Progress Note ---
Date of Service August 29, 2022 Assessment & Plan (1) Lumbar stenosis with neurogenic claudication: Plan: - PODD #1. EBL 100 cc. Without complications. MEHRDAD in place - Pain/ABX/IVF/diet/drain management/transfusion needs/activity per primary team - Rescue Narcan ordered for over sedation PRN - VTE prophylaxis per primary service- SCDs in place -Hemoglobin 10.7 from 12 - Baseline renal function: Cr 0.69, GFR 84.6., Creatinine remained stable at 0.67 (2) Hx of gastric ulcer: Plan: - Given history of gastric ulcer, will avoid NSAIDs for pain control Continue PPI (3) HTN (hypertension): Plan: - Continue amlodipine Resume lisinopril 08/30. Patient normotensive 08/29 (4) Hyperlipidemia: Plan: - Continue statin 20 mg daily. (5) Acid reflux: Plan: - Continue Pepcid 20 mg with pantoprazole 40 mg in the morning. (6) Lower extremity edema: Plan: - Prescribed Lasix 20 mg on an as-needed basis. - Would hold on this until POD #2 unless necessary. (7) Osteoporosis: Plan: - Takes Fosamax weekly. Plan - Admitted to [facility] per primary team. - SCDs ordered for VTE PPx per primary team. - Full code. Patient has two COVID tests from this AM, one is positive and the other is negative. Patient does not require COVID precautions at this time, but does require private room for infection control. Overall patient doing very well, stable, with no acute concerns. Medicine will sign off, please feel free to reconsult us with any clinical change or bleeding/continued hemoglobin downtrend or other lab abnormalities Admission and Anticipated Discharge Date Admission Date: August 28, 2022 Subjective Seen at the bedside this morning. She is in good spirits, and reports she feels very well. Reports suggesting Dr. Alba, feels that her back pain and leg pain is much better than it was when she came in and she is very pleased with her surgery. Denies pain while sitting in chair at bedside. Denies nausea/vomiting/stomach pain today. No lightheadedness/dizziness/chest pain/shortness of breath. Feels well, overall excited to progress towards discharge this weekend. No questions or concerns at this time. Denies shortness of breath/cough/sputum production Review of Systems Review of Systems: All systems reviewed & are unremarkable except as noted in Subjective Physical Exam Physical Exam: General: A&Ox3. NAD. Cooperative. Skin: Surgical site C/D/I, no erythema/bleeding. Serosanguineous MEHRDAD output HEENT: Atraumatic, normocephalic. Pulm: CTAB A&P. -wheezes, -rales, -rhonchi. Symmetrical chest rise. No increase in work of breathing. No respiratory distress. Cardiac: RRR, -mrg. Radial pulses intact and symmetrical. Abdominal: Nontender, nondistended, soft. BS present. Extremities: Sensation soft touch intact in hands and feet. Radial pulses intact and PT pulse intact bilaterally. Moving upper extremities equally. Results & Data Results & Data ([facility]) Vital Signs (Past 12 Hours) Vital Signs Temp Pulse Resp BP Pulse Ox O2 Del Method 08/29/22 14:18 36.7 C 82 16 116/67 96 Room Air 08/29/22 07:35 36.7 C 80 18 125/74 96 Room Air PG Care Time/CCT Total # of Minutes Spent Total Time Spent with Patient: Total time spent is greater than 50% in coordination of care (as documented) at patient's floor/unit and/or counseling patient: Coding Level of Care Code 24997 Subseq Hosp Care Lvl 2 Diagnoses Lumbar stenosis with neurogenic claudication M48.062 Hx of gastric ulcer Z87.19 HTN (hypertension) I10 Hyperlipidemia E78.5 Acid reflux K21.9 Lower extremity edema R60.0 Osteoporosis M81.0
[2022-08-29] MEDS: DOCUSATE SODIUM/SENNA 50/8.6MG TAB PO SCH (19:52)
--- NOTE | 2022-08-30 07:35 | Discharge Summary ---
Date of Service August 30, 2022 Discharge Data Consultations 08/28/22 14:32 Consult Hospitalist Routine Procedures Performed Operation Date: 08/28/22 10:05 Actual Procedures p L3-L4 Decompression and Fusion, Spinal Cord Monitoring(Not Applicable) - Ok Alba DO s L4-L5 Hardward Removal,(Not Applicable) - Ok Alba DO Hospital Course (1) Lumbar stenosis with neurogenic claudication: Patient is a pleasant 76-year-old female with history physical examination radiographic images consistent with the above-mentioned diagnosis. This reason she was brought to the operating room and undergone a removal of hardware L4 4 5 with a lumbar decompression and fusion at L3-4. She tolerated the procedure well left the operating with a MEHRDAD drain and Cruz in place and was transferred to PACU in stable condition. She then transferred the orthopedic floor. Throughout her hospital stay she has been comfortable. Her calves remained supple nontender her abdomen remained supple nontender. Postoperatively 2 she was deemed safe for home discharge. She was to change her dressing once daily until there is no drainage once there is no drainage she may shower. She is lift nothing heavier than 5 to 7 pounds. We will see her in the office in approximately 2 weeks or sooner if she develops any increased pain, numbness, tingling, or drainage from the incision.
[2022-08-30] MEDS: CHECK SCOPOLAMINE PATCH PLACEMENT SCH (08:22)
[2022-08-30] MEDS: ATORVASTATIN 20 MG TAB PO SCH (08:23)
[2022-08-30] MEDS: FAMOTIDINE 20 MG TAB PO SCH (08:23)
[2022-08-30] MEDS: amLODIPine BESYLATE 5 MG TAB PO SCH (08:23)
[2022-08-30] MEDS: dexAMETHasone 6 MG in SYRINGE 0 ML IV SCH (08:23)
[2022-08-30] MEDS: ASCORBIC ACID 500 MG TAB PO SCH (08:23)
[2022-08-30] MEDS: CHOLECALCIFEROL 1,000 UNITS 25 MCG TAB PO SCH (08:23)
[2022-08-30] MEDS: PANTOprazole 40 MG TAB PO SCH (08:23)
[2022-08-30] MEDS ORDERED: lisinopril 20 MG TAB PO SCH (09:00)
== END 2022-08-30 16:20 | disposition home or self-care (01) | DRG 455 ==
LOC: ASU 08:23 → 3W 13:04